=== PATIENT | female | born 1990 | race Two or more races ===

== ENCOUNTER 2019-11-17 11:33 | Emergency (ER) | payer OTHER ==
[~2019-11-17] VITALS: Ht 160 cm; Wt 69.4 kg
== END 2019-11-17 15:46 | disposition home or self-care (01) ==
LOC: ER 11:33
DX: J35.01 Chronic tonsillitis (principal)

== ENCOUNTER 2020-06-02 20:30 | Emergency (ER) | payer OTHER ==
[~2020-06-02] VITALS: Ht 160 cm; Wt 70.8 kg
[2020-06-02] MEDS ORDERED: PRENATABS RX T1 EACH (20:40)
== END 2020-06-03 08:56 | disposition home or self-care (01) ==
LOC: ER 20:30
DX: O99.89 Other specified diseases and conditions complicating pregnancy, childbirth and the puerperium (principal); R10.2 Pelvic and perineal pain; Z3A.20 20 weeks gestation of pregnancy; N13.39 Other hydronephrosis

== ENCOUNTER 2020-06-05 20:38 | Inpatient (IN) | payer OTHER ==
[~2020-06-05] VITALS: Ht 160 cm; Wt 71.2 kg
[~2020-06-05 20:38] MED LIST: PRENATABS RX T1 EACH
== END 2020-06-07 08:23 | disposition home or self-care (01) | DRG 818 ==
LOC: O/R 20:38 → SEC-K 20:38 → O/R 06-06 11:42 → OB/GYN 06-06 18:58 → LDR 06-06 20:45
PROVIDERS: Urology; ADMIT Obstetrics & Gynecology Maternal & Fetal Medicine; ATTEND Obstetrics & Gynecology Maternal & Fetal Medicine
PROC: 0T568ZZ Destruction of Right Ureter, Via Natural or Artificial Opening Endoscopic (ICD-10-PCS; 2020-06-06)
PROC: BT1DZZZ Fluoroscopy of Right Kidney, Ureter and Bladder (ICD-10-PCS; 2020-06-06)
PROC: 0T768DZ Dilation of Right Ureter with Intraluminal Device, Via Natural or Artificial Opening Endoscopic (ICD-10-PCS; principal; 2020-06-06 13:02)
DX: O99.89 Other specified diseases and conditions complicating pregnancy, childbirth and the puerperium (principal); N13.2 Hydronephrosis with renal and ureteral calculous obstruction; Z3A.20 20 weeks gestation of pregnancy; Z20.828 Contact with and (suspected) exposure to other viral communicable diseases

== ENCOUNTER 2020-08-17 04:40 | Inpatient (IN) | payer OTHER ==
[~2020-08-17] VITALS: Ht 160 cm; Wt 75.3 kg
== END 2020-08-19 13:20 | disposition home or self-care (01) | DRG 833 ==
LOC: OB/GYN 04:40 → LDR 04:40 → OB/GYN 08-18 10:05
PROVIDERS: ADMIT Obstetrics & Gynecology Maternal & Fetal Medicine; ATTEND Obstetrics & Gynecology Maternal & Fetal Medicine
PROC: 4A1HXFZ Monitoring of Products of Conception, Cardiac Rhythm, External Approach (ICD-10-PCS; principal; 2020-08-17)
DX: O60.03 Preterm labor without delivery, third trimester (principal); Z3A.31 31 weeks gestation of pregnancy

== ENCOUNTER 2020-10-11 13:15 | Inpatient (IN) | payer OTHER ==
[~2020-10-11] VITALS: Ht 160 cm; Wt 82.6 kg
[2020-10-13] MEDS ORDERED: FERROUS SULFAT325 MG PO (02:35)
== END 2020-10-15 12:32 | disposition home or self-care (01) | DRG 807 ==
LOC: LDR 10-13 02:33 → OB/GYN 10-13 02:33 → LDR 10-19 13:15
PROVIDERS: ADMIT Obstetrics & Gynecology; ATTEND Obstetrics & Gynecology
PROC: 10E0XZZ Delivery of Products of Conception, External Approach (ICD-10-PCS; principal; 2020-10-13)
PROC: 4A1HXFZ Monitoring of Products of Conception, Cardiac Rhythm, External Approach (ICD-10-PCS; 2020-10-13)
PROC: 3E033VJ Introduction of Other Hormone into Peripheral Vein, Percutaneous Approach (ICD-10-PCS; 2020-10-13)
DX: O80 Encounter for full-term uncomplicated delivery (principal); Z37.0 Single live birth; Z3A.39 39 weeks gestation of pregnancy; Z20.828 Contact with and (suspected) exposure to other viral communicable diseases